=== PATIENT | female | born 1970 | race Hispanic/Latino ===

== ENCOUNTER 2022-05-21 13:56 | Outpatient (CLI) | payer BC | END 2022-05-21 13:57 | disposition home or self-care (01) | LOC: CSHMAMMO 13:56 | PROVIDERS: ATTEND Family Medicine | DX: Z12.31 Encounter for screening mammogram for malignant neoplasm of breast (principal) | CPT/HCPCS: 77063; 77067 ==

== ENCOUNTER 2023-05-29 10:55 | Outpatient (CLI) | payer BC | END 2023-05-29 10:56 | disposition home or self-care (01) | LOC: CSHMAMMO 10:55 | PROVIDERS: ATTEND Family Medicine | DX: Z12.31 Encounter for screening mammogram for malignant neoplasm of breast (principal) | CPT/HCPCS: 77063; 77067 ==

== ENCOUNTER 2024-09-14 08:43 | Outpatient (CLI) | payer BC | END 2024-09-14 08:44 | disposition home or self-care (01) | LOC: CSHMAMMO 08:43 | PROVIDERS: ATTEND Family Medicine | DX: Z12.31 Encounter for screening mammogram for malignant neoplasm of breast (principal) | CPT/HCPCS: 77063; 77067 ==